=== PATIENT | female | born 1985 | race Caucasian/White ===

== ENCOUNTER 2022-04-11 09:40 | Inpatient (IN) | payer SELFPAY ==
[~2022-04-11 09:40] MED LIST: Iopamidol-370 76% 500 ML 1 ML ONE
[2022-04-11] MEDS ORDERED: Acetaminophen 500 MG TAB ONE (10:09)
[2022-04-11] MEDS ORDERED: Ondansetron PF 4 MG/2 ML Vial ONE (10:09)
[2022-04-11 10:49] LABS: Hemoglobin 6.4 g/dL (12.0-16.0); Mean Corpuscular HGB CONC 33.7 g/dL (32.0-36.0); Mean Corpuscular Hemoglobin 43.2 pg (27.0-31.0); Mean Platelet Volume 8.2 fL (7.4-10.4); Platelet Count 128 thou/uL (130-400); RBC Distribution Width 13.8 % (11.5-14.5); Red Blood Cell (RBC) Count 1.48 mill/uL (4.20-5.40); White Blood Cell (WBC) Count 14.7 thou/uL (4.8-10.8)
[2022-04-11 10:53] LABS: Clarity Hazy (Clear)
[2022-04-11 10:54] LABS: Bilirubin Unable to Interpret (Negative); Blood, Urine Unable to Interpret (Negative); Glucose, Urine (Dipstick) Unable to Interpret mg/dL (Negative); Ketone, Urine Unable to Interpret mg/dL (Negative); Leukocyte Unable to Interpret (Negative); Nitrite Unable to Interpret (Negative); Protein, Urine (Dipstick) Unable to Interpret mg/dL (Neg-Trace); Urobilinogen UNABLE TO INTERPRET mg/dL (Less than 2)
[2022-04-11 10:55] LABS: #Lymphocytes 1.8 thou/uL (1.20-3.40); #Monocytes 0.8 thou/uL (0.11-0.59); #Neutrophils 12.1 thou/uL (1.40-6.50); %Basophils 0.2 % (0.0-1.0); %Eosinophils 0.1 % (0.0-10.0); %Monocytes 5.4 % (0.0-10.0); %Neutrophils 82.4 % (42.0-75.0); Band 10 % (5-11); Hypersemented Neutrophil SLIGHT; Lymphocytes 11 % (21-51); MDiff Complete? YES; Macrocytosis MARKED = >30 cells (100X) (0-5/hpf); Monocytes 3 % (0-10); Neutrophil 76 % (42-75); Platelet Morphology Comment Appears Decreased; Polychromasia SLIGHT = 2-3 cells (100X) (0-2/hpf); Reflex for Review?? YES; Target Cells SLIGHT = 2-5 cells (100X) (0-1/hpf)
[2022-04-11 10:57] LABS: Pregnancy Test - Urine (BHCG) Negative (Negative); Pregu Control Background? CLEAR/WHITE (CLR/WHITE); Pregu Control Bar Appear? YES (CONTROL BAR)
[2022-04-11 10:57] LABS: Rouleaux Formation SLIGHT = 1-5 cells (100X) (None Seen)
[2022-04-11 10:58] LABS: Bacteria/HPF 4+ HPF (None Seen); WBC/HPF Greater than 50 HPF (0-3)
[2022-04-11 11:08] LABS: ALT (SGPT) 13 U/L (8-55); AST (SGOT) 98 U/L (5-34); Albumin 2.3 g/dL (3.5-5.0); Alkaline Phosphatase 150 U/L (40-110); BUN (Urea Nitrogen) 6 mg/dL (7.0-18.7); Bilirubin, Total 7.7 mg/dL (0.2-1.2); CK (CPK) 29 U/L (29-168); Calc. Creatinine Clearance 0 mL/min (70-130); Calcium 8.1 mg/dL (7.8-10.44); Estimated GFR 116; Globulin 4.7 g/dL (2.4-3.5); Glucose 78 mg/dL (70-105); Lipase 54 U/L (8-78)
[2022-04-11 11:09] LABS: Anion Gap 19 mmol/L (10-20)
[2022-04-11 11:17] LABS: Carbon Dioxide 34 mmol/L (22-29); Chloride 75 mmol/L (98-107); Sodium 127 mmol/L (136-145)
[2022-04-11] MEDS ORDERED: cefTRIAXone\\ROCEPHIN 1 GM VIAL ONE (11:19)
[2022-04-11 11:21] LABS: Potassium 2.9 mmol/L (3.5-5.1)
[2022-04-11 11:30] LABS: Hypochromia SLIGHT = 6-15 cells (100X) (0-5/hpf)
[2022-04-11] MEDS ORDERED: Multivitamins, Adult 10 ML, Thiamine HCl 100 MG, Folic Acid 1 MG in Dextrose 5 %-0.45 %... IV SCH (12:00)
[2022-04-11] MEDS ORDERED: Ondansetron PF 4 MG/2 ML Vial IVP PRN ×2 (13:01→19:15)
[2022-04-11] MEDS ORDERED: Potassium Chloride 20 MEQ/100 ML PREMIX BAG ONE ×2 (13:02→15:59)
[2022-04-11 13:48] LABS: INR-International Normal Ratio 1.6; Prothrombin Time 19.3 sec (12.0-14.7)
[2022-04-11 13:49] LABS: PTT 57.5 sec (22.9-36.1)
[2022-04-11] MEDS: Potassium Chloride 20 MEQ TAB PO SCH ×3 (14:00→20:46)
[2022-04-11 14:26] LABS: SARS-CoV-2 NAA Rapid Test DETECTED (NotDetected)
[2022-04-11 16:06] LABS: Hemoglobin 5.6 g/dL (12.0-16.0)
[2022-04-11 16:51] LABS: HBCM Index 0.12 S/CO (0-0.79); HBSAg Index 0.33 S/CO (0-0.99); Hep A IgM AB Non-Reactive (NonReactive); Hep A IgM S/CO 0.19 S/CO (0-0.79); Hep B Surf Ag Non-Reactive S/CO (NonReactive); Hep C IgG Ab Non-Reactive (NonReactive); Hep C Index 0.12 S/CO (0-0.79); Hepatitis B Core IgM Abs Non-Reactive (NonReactive)
[2022-04-11 17:20] LABS: Alcohol Less than 10 mg/dL (Less than 10); Salicylate Less than 8.0 mg/dL (15.0-30.0)
[2022-04-11 19:04] LABS: Syphilis Antibody Nonreactive (Nonreactive); Syphilis Antibody Index 0.09 S/CO (<1.00 Non-Reactive)
[2022-04-11] MEDS ORDERED: Ondansetron ODT 4 MG TAB SL PRN (19:15)
[2022-04-11 20:08] VITALS: BMI 25.7
[2022-04-11] MEDS: Multivitamins, Adult 10 ML, Folic Acid 1 MG, Thiamine HCl 100 MG in Dextrose 5 %-0.45 %... IV SCH ×2 (20:40→21:08)
[2022-04-11] MEDS: Pantoprazole 40 MG VIAL IVP SCH (20:46)
[2022-04-11] MEDS: D5 0.9% NS w/ 20 mEq KCl 1,000 ML IV SCH (20:47)
[2022-04-11] MEDS ORDERED: Albuterol 200 PUFF (6.7GM INHALER) INH SCH (21:00)
[2022-04-11 21:08] LABS: Hemoglobin 6.2 g/dL (12.0-16.0)
[2022-04-11 21:32] LABS: Amphetamine Not Detected (NotDetected); Barbiturates Screen Not Detected (NotDetected); Benzodiazepine Screen Not Detected (NotDetected); Cocaine Metabolite Screen Detected (NotDetected); Methadone Not Detected (NotDetected); Methamphetamine Not Detected (NotDetected); Opiate Screen Not Detected (NotDetected); Oxycodone Screen Not Detected (NotDetected); Phencyclidine (PCP) Not Detected (NotDetected); THC/Cannabinoid Screen Not Detected (NotDetected); Tricyclic Screen Not Detected (NotDetected)
[2022-04-11] MEDS: Acetaminophen 325 MG TAB PO PRN (21:41)
[2022-04-12] MEDS: Albuterol 200 PUFF (6.7GM INHALER) INH SCH ×4 (01:55→16:43)
[2022-04-12] MEDS: Potassium Chloride 20 MEQ TAB PO SCH ×3 (02:27→11:13)
[2022-04-12] MEDS: Acetaminophen 325 MG TAB PO PRN ×2 (02:28→14:05)
[2022-04-12] MEDS: D5 0.9% NS w/ 20 mEq KCl 1,000 ML IV SCH (06:06)
[2022-04-12] MEDS: Octreotide Acetate 1,250 MCG in Sodium Chloride 0.9% 250 ML 250 ML IVPB SCH (07:13)
[2022-04-12] MEDS: Pantoprazole 40 MG VIAL IVP SCH ×2 (07:14→20:14)
[2022-04-12] MEDS ORDERED: Electrolyte Replacement Protocol 1 EACH FS SCH (08:30)
[2022-04-12] MEDS: Multivitamins, Adult 10 ML, Folic Acid 1 MG, Thiamine HCl 100 MG in Dextrose 5 %-0.45 %... IV SCH (11:13)
[2022-04-12 11:18] LABS: Phosphorus 2.2 mg/dL (2.3-4.7)
[2022-04-12 11:19] LABS: ALT (SGPT) 10 U/L (8-55); AST (SGOT) 73 U/L (5-34); Albumin 2.1 g/dL (3.5-5.0); Alkaline Phosphatase 129 U/L (40-110); Anion Gap 15 mmol/L (10-20); BUN (Urea Nitrogen) 8 mg/dL (7.0-18.7); Bilirubin, Total 5.6 mg/dL (0.2-1.2); Calc. Creatinine Clearance 120 mL/min (70-130); Calcium 7.4 mg/dL (7.8-10.44); Carbon Dioxide 31 mmol/L (22-29); Chloride 88 mmol/L (98-107); Estimated GFR 114; Globulin 4.5 g/dL (2.4-3.5); Glucose 123 mg/dL (70-105); Magnesium 1.4 mg/dL (1.6-2.6); Potassium 3.9 mmol/L (3.5-5.1); Protein, Total 6.6 g/dL (6.0-8.3); Sodium 130 mmol/L (136-145)
[2022-04-12 11:28] LABS: Hemoglobin 6.4 g/dL (12.0-16.0); Mean Corpuscular Hemoglobin 37.5 pg (27.0-31.0); Mean Platelet Volume 8.1 fL (7.4-10.4); Platelet Count 123 thou/uL (130-400); RBC Distribution Width 20.7 % (11.5-14.5); Red Blood Cell (RBC) Count 1.69 mill/uL (4.20-5.40); White Blood Cell (WBC) Count 15.2 thou/uL (4.8-10.8)
[2022-04-12 11:29] LABS: INR-International Normal Ratio 1.6; Prothrombin Time 19.4 sec (12.0-14.7)
[2022-04-12 11:53] LABS: Band 12 % (5-11); Hypersemented Neutrophil SLIGHT; Lymphocytes 16 % (21-51); MDiff Complete? YES; Macrocytosis MODERATE=16-30 cells (100X) (0-5/hpf); Monocytes 4 % (0-10); Neutrophil 67 % (42-75); Platelet Morphology Comment Appears Decreased; Polychromasia SLIGHT = 2-3 cells (100X) (0-2/hpf); Target Cells SLIGHT = 2-5 cells (100X) (0-1/hpf)
[2022-04-12] MEDS ORDERED: Magnesium Sulfate In Water 4 GM in Premix Bag 1 BAG IVPB SCH (12:30)
[2022-04-12] MEDS: cefTRIAXone\\ROCEPHIN 1 GM in Sodium Chloride 0.9% 100 ML IVPB SCH (13:25)
[2022-04-12] MEDS ORDERED: prednisoLONE 10 MG ODT TAB PO SCH (14:45)
[2022-04-12 17:11] LABS: Hemoglobin 7.5 g/dL (12.0-16.0); Platelet Count 121 thou/uL (130-400)
[2022-04-12] MEDS ORDERED: Lorazepam 0.5 MG TAB PO PRN (19:28)
[2022-04-13] MEDS: Albuterol 200 PUFF (6.7GM INHALER) INH SCH ×4 (00:39→22:34)
[2022-04-13 07:04] LABS: INR-International Normal Ratio 1.5; Prothrombin Time 18.1 sec (12.0-14.7)
[2022-04-13 07:06] LABS: PTT 57.2 sec (22.9-36.1)
[2022-04-13 07:09] LABS: Lactic Acid 2.4 mmol/L (0.5-2.2)
[2022-04-13 07:14] LABS: ALT (SGPT) 10 U/L (8-55); AST (SGOT) 56 U/L (5-34); Albumin 2.4 g/dL (3.5-5.0); Alkaline Phosphatase 155 U/L (40-110); Anion Gap 13 mmol/L (10-20); BUN (Urea Nitrogen) 8 mg/dL (7.0-18.7); Bilirubin, Total 3.2 mg/dL (0.2-1.2); Calc. Creatinine Clearance 108 mL/min (70-130); Calcium 7.9 mg/dL (7.8-10.44); Carbon Dioxide 31 mmol/L (22-29); Chloride 89 mmol/L (98-107); Estimated GFR 101; Globulin 5.1 g/dL (2.4-3.5); Glucose 146 mg/dL (70-105); Magnesium 2.5 mg/dL (1.6-2.6); Potassium 4.5 mmol/L (3.5-5.1); Protein, Total 7.5 g/dL (6.0-8.3); Sodium 128 mmol/L (136-145)
[2022-04-13 07:15] LABS: Hemoglobin 7.8 g/dL (12.0-16.0); Mean Corpuscular HGB CONC 33.3 g/dL (32.0-36.0); Mean Corpuscular Hemoglobin 37.8 pg (27.0-31.0); Mean Platelet Volume 8.3 fL (7.4-10.4); Platelet Count 131 thou/uL (130-400); RBC Distribution Width 20.1 % (11.5-14.5); Red Blood Cell (RBC) Count 2.06 mill/uL (4.20-5.40); White Blood Cell (WBC) Count 12.4 thou/uL (4.8-10.8)
[2022-04-13 07:16] LABS: #Lymphocytes 2.1 thou/uL (1.20-3.40); #Monocytes 0.4 thou/uL (0.11-0.59); %Basophils 0.2 % (0.0-1.0); %Lymphocytes 16.5 % (21.0-51.0); %Monocytes 3.1 % (0.0-10.0); %Neutrophils 80.2 % (42.0-75.0)
[2022-04-13 07:34] LABS: HIV (1/2) Antibody/Antigen Non-Reactive (NonReactive); HIV 1/2 INDEX 0.25 S/CO (<1.00)
[2022-04-13] MEDS: Multivit, Therapeutic 1 TAB PO SCH (08:53)
[2022-04-13] MEDS: Thiamine 100 MG TAB PO SCH (08:53)
[2022-04-13] MEDS: PHOS-NAK 1 PKT PACK PO SCH ×2 (08:53→21:00)
[2022-04-13] MEDS: Folic Acid 1 MG TAB PO SCH (08:53)
[2022-04-13] MEDS: Pantoprazole 40 MG VIAL IVP SCH ×2 (08:55→21:55)
[2022-04-13] MEDS: Octreotide Acetate 1,250 MCG in Sodium Chloride 0.9% 250 ML 250 ML IVPB SCH (08:58)
[2022-04-13] MEDS: Multivitamins, Adult 10 ML, Folic Acid 1 MG, Thiamine HCl 100 MG in Dextrose 5 %-0.45 %... IV SCH (09:01)
[2022-04-13] MEDS: prednisoLONE 10 MG ODT TAB PO SCH (09:01)
[2022-04-13 09:16] LABS: Anisocytosis SLIGHT = 6-15 cells (100X) (0-5/hpf); MDiff Complete? YES; Macrocytosis MODERATE=16-30 cells (100X) (0-5/hpf); Platelet Morphology Comment Appears Adequate; Polychromasia SLIGHT = 2-3 cells (100X) (0-2/hpf); Target Cells SLIGHT = 2-5 cells (100X) (0-1/hpf)
[2022-04-13] MEDS: cefTRIAXone\\ROCEPHIN 1 GM in Sodium Chloride 0.9% 100 ML IVPB SCH (20:59)
[2022-04-14] MEDS: Albuterol 200 PUFF (6.7GM INHALER) INH SCH ×4 (02:35→22:05)
[2022-04-14 06:26] LABS: ALT (SGPT) 14 U/L (8-55); AST (SGOT) 70 U/L (5-34); Albumin 2.4 g/dL (3.5-5.0); Alkaline Phosphatase 136 U/L (40-110); Anion Gap 14 mmol/L (10-20); BUN (Urea Nitrogen) 15 mg/dL (7.0-18.7); Bilirubin, Total 2.3 mg/dL (0.2-1.2); Calc. Creatinine Clearance 85 mL/min (70-130); Calcium 8.2 mg/dL (7.8-10.44); Carbon Dioxide 29 mmol/L (22-29); Chloride 90 mmol/L (98-107); Estimated GFR 76; Globulin 4.8 g/dL (2.4-3.5); Glucose 156 mg/dL (70-105); Magnesium 2.4 mg/dL (1.6-2.6); Phosphorus 3.9 mg/dL (2.3-4.7); Potassium 4.6 mmol/L (3.5-5.1); Protein, Total 7.2 g/dL (6.0-8.3); Sodium 128 mmol/L (136-145)
[2022-04-14 06:33] LABS: Anisocytosis SLIGHT = 6-15 cells (100X) (0-5/hpf); Band 4 % (5-11); Hemoglobin 7.1 g/dL (12.0-16.0); Lymphocytes 12 % (21-51); MDiff Complete? YES; Mean Corpuscular HGB CONC 32.2 g/dL (32.0-36.0); Mean Corpuscular Hemoglobin 36.4 pg (27.0-31.0); Mean Platelet Volume 7.8 fL (7.4-10.4); Monocytes 6 % (0-10); Neutrophil 78 % (42-75); Platelet Count 143 thou/uL (130-400); RBC Distribution Width 19.2 % (11.5-14.5); Red Blood Cell (RBC) Count 1.94 mill/uL (4.20-5.40); White Blood Cell (WBC) Count 8.9 thou/uL (4.8-10.8)
[2022-04-14] MEDS: prednisoLONE 10 MG ODT TAB PO SCH (09:03)
[2022-04-14] MEDS: Pantoprazole 40 MG VIAL IVP SCH ×2 (10:00→22:05)
[2022-04-14] MEDS: Multivit, Therapeutic 1 TAB PO SCH (10:00)
[2022-04-14] MEDS: Folic Acid 1 MG TAB PO SCH (10:00)
[2022-04-14] MEDS: Multivitamins, Adult 10 ML, Folic Acid 1 MG, Thiamine HCl 100 MG in Dextrose 5 %-0.45 %... IV SCH (11:03)
[2022-04-14] MEDS: cefTRIAXone\\ROCEPHIN 1 GM in Sodium Chloride 0.9% 100 ML IVPB SCH ×2 (12:02→12:03)
[2022-04-14] MEDS: Nicotine 14 MG PATCH TD PRN (12:02)
[2022-04-15] MEDS: Albuterol 200 PUFF (6.7GM INHALER) INH SCH ×4 (03:47→23:02)
[2022-04-15] MEDS: Octreotide Acetate 1,250 MCG in Sodium Chloride 0.9% 250 ML 250 ML IVPB SCH (03:48)
[2022-04-15 06:25] LABS: Mean Corpuscular HGB CONC 33.1 g/dL (32.0-36.0); Mean Platelet Volume 7.7 fL (7.4-10.4); Platelet Count 153 thou/uL (130-400); RBC Distribution Width 19.4 % (11.5-14.5); Red Blood Cell (RBC) Count 1.85 mill/uL (4.20-5.40); White Blood Cell (WBC) Count 7.2 thou/uL (4.8-10.8)
[2022-04-15 06:54] LABS: Band 3 % (5-11); Lymphocytes 30 % (21-51); MDiff Complete? YES; Macrocytosis MODERATE=16-30 cells (100X) (0-5/hpf); Monocytes 10 % (0-10); Neutrophil 57 % (42-75)
[2022-04-15 06:57] LABS: ALT (SGPT) 25 U/L (8-55); AST (SGOT) 155 U/L (5-34); Albumin 2.3 g/dL (3.5-5.0); Alkaline Phosphatase 135 U/L (40-110); Anion Gap 12 mmol/L (10-20); BUN (Urea Nitrogen) 23 mg/dL (7.0-18.7); Bilirubin, Total 1.9 mg/dL (0.2-1.2); Calc. Creatinine Clearance 95 mL/min (70-130); Calcium 8.4 mg/dL (7.8-10.44); Carbon Dioxide 29 mmol/L (22-29); Chloride 93 mmol/L (98-107); Estimated GFR 86; Globulin 4.6 g/dL (2.4-3.5); Glucose 94 mg/dL (70-105); Potassium 4.4 mmol/L (3.5-5.1); Protein, Total 6.9 g/dL (6.0-8.3); Sodium 130 mmol/L (136-145)
[2022-04-15] MEDS: prednisoLONE 10 MG ODT TAB PO SCH (09:42)
[2022-04-15] MEDS: Pantoprazole 40 MG VIAL IVP SCH ×2 (09:43→23:02)
[2022-04-15] MEDS: Multivit, Therapeutic 1 TAB PO SCH (09:43)
[2022-04-15] MEDS: Thiamine 100 MG TAB PO SCH (09:43)
[2022-04-15] MEDS: Folic Acid 1 MG TAB PO SCH (09:43)
[2022-04-15] MEDS: Multivitamins, Adult 10 ML, Folic Acid 1 MG, Thiamine HCl 100 MG in Dextrose 5 %-0.45 %... IV SCH (11:53)
[2022-04-15] MEDS: Nicotine 14 MG PATCH TD PRN (12:03)
[2022-04-15] MEDS: cefTRIAXone\\ROCEPHIN 1 GM in Sodium Chloride 0.9% 100 ML IVPB SCH (12:03)
[2022-04-15 18:40] LABS: ANA Symphony (Qualitative) POSITIVE (Negative); CENP IgG Antibody 1.2 EliAU/mL (<7 Negative); EliA Vaculitis New Method **** NEW METHOD ****; Jo-1 IgG Antibody 0.8 EliAU/mL (<7 Negative); RNP70 IgG Antibody 0.9 EliAU/mL (<7 Negative); SSA/Ro IgG Antibody 1.2 EliAU/mL (<7 Negative); SSB/La IgG Antibody 0.8 EliAU/mL (<7 Negative); Scleroderma-70 IgG Antibody 1.1 EliAU/mL (<7 Negative); Smith D IgG Antibody 2.5 EliAU/mL (<7 Negative); dsDNA IgG Antibody 3.9 IU/mL (<10 Negative)
[2022-04-16] MEDS: Albuterol 200 PUFF (6.7GM INHALER) INH SCH ×4 (02:51→23:12)
[2022-04-16] MEDS: Nicotine 14 MG PATCH TD PRN (09:16)
[2022-04-16] MEDS: Multivit, Therapeutic 1 TAB PO SCH (09:17)
[2022-04-16] MEDS: Folic Acid 1 MG TAB PO SCH (09:17)
[2022-04-16] MEDS: Pantoprazole 40 MG VIAL IVP SCH ×2 (09:18→21:44)
[2022-04-16] MEDS: prednisoLONE 10 MG ODT TAB PO SCH (09:18)
[2022-04-16] MEDS: Thiamine 100 MG TAB PO SCH (09:19)
[2022-04-16] MEDS ORDERED: GoLYTELY 4,000 ml Bottle PO SCH (12:00)
[2022-04-16] MEDS: Multivitamins, Adult 10 ML, Folic Acid 1 MG, Thiamine HCl 100 MG in Dextrose 5 %-0.45 %... IV SCH (15:29)
[2022-04-17] MEDS: Albuterol 200 PUFF (6.7GM INHALER) INH SCH ×4 (00:56→19:21)
[2022-04-17 07:23] LABS: #Lymphocytes 2.9 thou/uL (1.20-3.40); #Monocytes 0.9 thou/uL (0.11-0.59); #Neutrophils 4.2 thou/uL (1.40-6.50); %Basophils 0.6 % (0.0-1.0); %Eosinophils 0.2 % (0.0-10.0); %Lymphocytes 36.1 % (21.0-51.0); %Monocytes 11.1 % (0.0-10.0); %Neutrophils 51.9 % (42.0-75.0); Hemoglobin 8.9 g/dL (12.0-16.0); Mean Corpuscular HGB CONC 32.6 g/dL (32.0-36.0); Mean Corpuscular Hemoglobin 37.8 pg (27.0-31.0); Mean Platelet Volume 7.3 fL (7.4-10.4); Platelet Count 195 thou/uL (130-400); RBC Distribution Width 18.4 % (11.5-14.5); Red Blood Cell (RBC) Count 2.36 mill/uL (4.20-5.40)
[2022-04-17 07:27] LABS: INR-International Normal Ratio 1.3; Prothrombin Time 16.6 sec (12.0-14.7)
[2022-04-17 07:37] LABS: Anion Gap 15 mmol/L (10-20); BUN (Urea Nitrogen) 10 mg/dL (7.0-18.7); Calc. Creatinine Clearance 137 mL/min (70-130); Calcium 8.2 mg/dL (7.8-10.44); Carbon Dioxide 27 mmol/L (22-29); Chloride 98 mmol/L (98-107); Estimated GFR 120; Glucose 84 mg/dL (70-105); Potassium 3.9 mmol/L (3.5-5.1); Sodium 136 mmol/L (136-145)
[2022-04-17 08:06] LABS: Hypochromia SLIGHT = 6-15 cells (100X) (0-5/hpf); MDiff Complete? YES; Macrocytosis SLIGHT = 6-15 cells (100X) (0-5/hpf); Platelet Morphology Comment Appears Adequate; Polychromasia SLIGHT = 2-3 cells (100X) (0-2/hpf); Target Cells SLIGHT = 2-5 cells (100X) (0-1/hpf)
[2022-04-17] MEDS: Multivit, Therapeutic 1 TAB PO SCH ×2 (09:00→16:27)
[2022-04-17] MEDS: Multivitamins, Adult 10 ML, Folic Acid 1 MG, Thiamine HCl 100 MG in Dextrose 5 %-0.45 %... IV SCH (09:00)
[2022-04-17] MEDS: prednisoLONE 10 MG ODT TAB PO SCH (09:00)
[2022-04-17] MEDS: Thiamine 100 MG TAB PO SCH ×2 (09:00→16:27)
[2022-04-17] MEDS: Pantoprazole 40 MG VIAL IVP SCH ×3 (09:00→20:10)
[2022-04-17] MEDS: Folic Acid 1 MG TAB PO SCH ×2 (09:51→16:27)
[2022-04-17] MEDS ORDERED: fentaNYL Citrate/PF 100 MCG/2 ML SYRINGE ONE (13:32)
[2022-04-17] MEDS ORDERED: PROPOFOL 200 MG/20 ML VIAL ONE (13:39)
[2022-04-17] MEDS ORDERED: Lidocaine 1% MPF 2 ML VIAL ONE (13:39)
[2022-04-18] MEDS: Albuterol 200 PUFF (6.7GM INHALER) INH SCH (01:13)
[2022-04-18 06:51] LABS: #Basophils 0.1 thou/uL (0.0-0.2); #Lymphocytes 2.3 thou/uL (1.20-3.40); #Monocytes 0.9 thou/uL (0.11-0.59); #Neutrophils 3.1 thou/uL (1.40-6.50); %Basophils 0.8 % (0.0-1.0); %Eosinophils 0.5 % (0.0-10.0); %Lymphocytes 35.6 % (21.0-51.0); %Monocytes 13.7 % (0.0-10.0); %Neutrophils 49.5 % (42.0-75.0); Hemoglobin 7.1 g/dL (12.0-16.0); Mean Corpuscular HGB CONC 32.3 g/dL (32.0-36.0); Mean Corpuscular Hemoglobin 36.9 pg (27.0-31.0); Mean Platelet Volume 7.2 fL (7.4-10.4); Platelet Count 160 thou/uL (130-400); RBC Distribution Width 18.5 % (11.5-14.5); Red Blood Cell (RBC) Count 1.93 mill/uL (4.20-5.40); White Blood Cell (WBC) Count 6.3 thou/uL (4.8-10.8)
[2022-04-18 07:16] LABS: ALT (SGPT) 64 U/L (8-55); AST (SGOT) 188 U/L (5-34); Albumin 2.1 g/dL (3.5-5.0); Alkaline Phosphatase 143 U/L (40-110); Anion Gap 12 mmol/L (10-20); BUN (Urea Nitrogen) 5 mg/dL (7.0-18.7); Bilirubin, Total 1.8 mg/dL (0.2-1.2); Calc. Creatinine Clearance 144 mL/min (70-130); Calcium 7.7 mg/dL (7.8-10.44); Carbon Dioxide 29 mmol/L (22-29); Chloride 98 mmol/L (98-107); Estimated GFR 121; Glucose 106 mg/dL (70-105); Potassium 3.7 mmol/L (3.5-5.1); Protein, Total 6.1 g/dL (6.0-8.3); Sodium 135 mmol/L (136-145)
[2022-04-18 08:08] VITALS: BP 108/73; TEMP 98.2
== END 2022-04-18 12:06 | disposition home or self-care (01) | DRG 432 ==
LOC: ERS 09:40 → ERHOLD 13:01 → T4-B 18:51
PROVIDERS: ADMIT Family Medicine; ATTEND Family Medicine
PROC: 30233N1 Transfusion of Nonautologous Red Blood Cells into Peripheral Vein, Percutaneous Approach (ICD-10-PCS; principal; 2022-04-11)
PROC: 8E0ZXY6 Isolation (ICD-10-PCS; 2022-04-11)
PROC: 0DJ08ZZ Inspection of Upper Intestinal Tract, Via Natural or Artificial Opening Endoscopic (ICD-10-PCS; 2022-04-17)
PROC: 0DBH8ZZ Excision of Cecum, Via Natural or Artificial Opening Endoscopic (ICD-10-PCS; 2022-04-17)
PROC: 0DBL8ZZ Excision of Transverse Colon, Via Natural or Artificial Opening Endoscopic (ICD-10-PCS; 2022-04-17)
DX: K70.10 Alcoholic hepatitis without ascites (principal); U07.1 COVID-19; E87.1 Hypo-osmolality and hyponatremia; N30.00 Acute cystitis without hematuria; E87.2 Acidosis; K76.6 Portal hypertension; D62 Acute posthemorrhagic anemia; F41.9 Anxiety disorder, unspecified; N92.0 Excessive and frequent menstruation with regular cycle; K70.31 Alcoholic cirrhosis of liver with ascites; E87.6 Hypokalemia; F14.10 Cocaine abuse, uncomplicated; F17.210 Nicotine dependence, cigarettes, uncomplicated; E83.42 Hypomagnesemia; E83.39 Other disorders of phosphorus metabolism; D69.6 Thrombocytopenia, unspecified; K31.89 Other diseases of stomach and duodenum; K57.30 Diverticulosis of large intestine without perforation or abscess without bleeding; K64.4 Residual hemorrhoidal skin tags; K64.8 Other hemorrhoids; Z90.49 Acquired absence of other specified parts of digestive tract; Z88.0 Allergy status to penicillin
CPT/HCPCS: 36415; 36416; 36430; 71045; 74177; 76705; 76856; 80048; 80053; 80074; 80306; 80307; 81003; 81015; 81025; 82105; 82390; 82550; 82607; 83516; 83605; 83690; 83735; 83880; 84100; 85025; 85060; 85610; 85730; 86015; 86038; 86225; 86235; 86780; 86850; 86900; 86901; 87040; 87077; 87086; 87186; 87389; 88305; 93306; 93975; 96361; 96374; 96375; C1776; C9113; J0696; J2354; J2405; J2704; J3411; J3475; J3480; J3490; J7042; J7050; J7510; J7620; P9016; Q9967

== ENCOUNTER 2022-04-30 08:20 | Inpatient (IN) | payer SELFPAY ==
[2022-04-30] MEDS ORDERED: Pantoprazole 40 MG VIAL ONE (08:40)
[2022-04-30] MEDS ORDERED: Ondansetron PF 4 MG/2 ML Vial ONE (08:40)
[2022-04-30] MEDS ORDERED: Tranexamic Acid 1,000 MG/10 ML VIAL ONE (08:40)
[2022-04-30] MEDS ORDERED: Octreotide Acetate 1,250 MCG in Sodium Chloride 0.9% 250 ML 250 ML IVPB SCH ×2 (08:45→12:15)
[2022-04-30] MEDS ORDERED: Pantoprazole 80 MG, Admixture Fee 1 EACH in Sodium Chloride 0.9% 100 ML IVPB SCH (09:00)
[2022-04-30 09:08] LABS: Hemoglobin 4.5 g/dL (12.0-16.0); Mean Corpuscular HGB CONC 32.3 g/dL (32.0-36.0); Mean Corpuscular Hemoglobin 33.2 pg (27.0-31.0); Mean Platelet Volume 7.2 fL (7.4-10.4); Platelet Count 184 thou/uL (130-400); RBC Distribution Width 19.7 % (11.5-14.5); Red Blood Cell (RBC) Count 1.36 mill/uL (4.20-5.40); White Blood Cell (WBC) Count 20.7 thou/uL (4.8-10.8)
[2022-04-30 09:11] LABS: INR-International Normal Ratio 1.6; PTT 35.2 sec (22.9-36.1); Prothrombin Time 19.6 sec (12.0-14.7)
[2022-04-30] MEDS ORDERED: Iopamidol-370 76% 500 ML 1 ML ONE (09:19)
[2022-04-30 09:22] LABS: Band 8 % (5-11); Lymphocytes 13 % (21-51); MDiff Complete? YES; Macrocytosis SLIGHT = 6-15 cells (100X) (0-5/hpf); Monocytes 3 % (0-10); Neutrophil 76 % (42-75); Platelet Morphology Comment Appears Adequate; Polychromasia MODERATE = 3-4 cells (100X) (0-2/hpf)
[2022-04-30 09:24] LABS: ALT (SGPT) 56 U/L (8-55); AST (SGOT) 74 U/L (5-34); Alkaline Phosphatase 68 U/L (40-110); Anion Gap 15 mmol/L (10-20); BUN (Urea Nitrogen) 16 mg/dL (7.0-18.7); Bilirubin, Total 1.5 mg/dL (0.2-1.2); Calc. Creatinine Clearance 0 mL/min (70-130); Calcium 7.3 mg/dL (7.8-10.44); Carbon Dioxide 23 mmol/L (22-29); Chloride 102 mmol/L (98-107); Estimated GFR 116; Globulin 2.2 g/dL (2.4-3.5); Glucose 110 mg/dL (70-105); Iron 13 ug/dL (50-170); Iron Binding Capacity, Total 129 mcg/dL (265-497); Potassium 3.9 mmol/L (3.5-5.1); Protein, Total 4.2 g/dL (6.0-8.3); Sodium 136 mmol/L (136-145)
[2022-04-30] MEDS ORDERED: Midazolam HCl 2 mg/2 ml Vial ONE (09:26)
[2022-04-30] MEDS ORDERED: Cefepime 2 GM VIAL ONE (09:36)
[2022-04-30] MEDS ORDERED: Sodium Chloride 0.9% 100 ML ONE (09:36)
[2022-04-30] MEDS ORDERED: Vancomycin 1 GM/200 ML BAG ONE (09:36)
[2022-04-30 09:37] LABS: Acetaminophen Less than 10.0 mcg/mL (10.0-30.0); Alcohol Less than 10 mg/dL (Less than 10); Salicylate Less than 8.0 mg/dL (15.0-30.0)
[2022-04-30 10:16] LABS: Bilirubin Negative (Negative); Blood, Urine Negative (Negative); Clarity Clear (Clear); Glucose, Urine (Dipstick) Normal (Negative); Ketone, Urine Negative (Negative); Leukocyte Negative Leu/uL (Negative); Nitrite Negative (Negative); Protein, Urine (Dipstick) 10 mg/dL (Neg-Trace); Urobilinogen Normal mg/dL (Less than 2); pH, Urine 5.5 (5.0-9.0)
[2022-04-30 10:19] LABS: Pregnancy Test - Urine (BHCG) Negative (Negative); Pregu Control Background? CLEAR/WHITE (CLR/WHITE); Pregu Control Bar Appear? YES (CONTROL BAR)
[2022-04-30 10:52] LABS: SARS-CoV-2 NAA Rapid Test Not Detected (NotDetected)
[2022-04-30] MEDS ORDERED: Ondansetron PF 4 MG/2 ML Vial IVP PRN (11:54)
[2022-04-30 12:22] LABS: #Basophils 0.1 thou/uL (0.0-0.2); #Lymphocytes 2.2 thou/uL (1.20-3.40); #Monocytes 0.9 thou/uL (0.11-0.59); %Basophils 0.4 % (0.0-1.0); %Eosinophils 0.3 % (0.0-10.0); %Lymphocytes 16.4 % (21.0-51.0); %Monocytes 6.7 % (0.0-10.0); %Neutrophils 76.2 % (42.0-75.0); Hemoglobin 7.5 g/dL (12.0-16.0); Mean Corpuscular HGB CONC 34.5 g/dL (32.0-36.0); Mean Corpuscular Hemoglobin 32.7 pg (27.0-31.0); Mean Corpuscular Volume 94.7 fL (78.0-98.0); Mean Platelet Volume 7.4 fL (7.4-10.4); Platelet Count 108 thou/uL (130-400); RBC Distribution Width 17.3 % (11.5-14.5); Red Blood Cell (RBC) Count 2.29 mill/uL (4.20-5.40); White Blood Cell (WBC) Count 13.2 thou/uL (4.8-10.8)
[2022-04-30 12:35] LABS: Anion Gap 12 mmol/L (10-20); BUN (Urea Nitrogen) 17 mg/dL (7.0-18.7); Calc. Creatinine Clearance 0 mL/min (70-130); Carbon Dioxide 22 mmol/L (22-29); Chloride 104 mmol/L (98-107); Estimated GFR 120; Glucose 139 mg/dL (70-105); Potassium 3.9 mmol/L (3.5-5.1); Sodium 134 mmol/L (136-145)
[2022-04-30] MEDS ORDERED: GoLYTELY 4,000 ml Bottle PO SCH (12:45)
[2022-04-30 12:49] LABS: Amphetamine Not Detected (NotDetected); Barbiturates Screen Not Detected (NotDetected); Benzodiazepine Screen Not Detected (NotDetected); Cocaine Metabolite Screen Detected (NotDetected); Methadone Not Detected (NotDetected); Methamphetamine Not Detected (NotDetected); Opiate Screen Not Detected (NotDetected); Oxycodone Screen Not Detected (NotDetected); Phencyclidine (PCP) Not Detected (NotDetected); THC/Cannabinoid Screen Detected (NotDetected); Tricyclic Screen Not Detected (NotDetected)
[2022-04-30 12:50] LABS: Hemoglobin A1c 4.9 % (4.0-6.0)
[2022-04-30] MEDS ORDERED: NOREPINEPHRINE 8 MG/250 ML-D5W 250 ML ONE (12:51)
[2022-04-30 12:53] LABS: Hemoglobin 8.2 g/dL (12.0-16.0); Platelet Count 107 thou/uL (130-400)
[2022-04-30 12:57] LABS: Lactic Acid 2.2 mmol/L (0.5-2.2)
[2022-04-30 15:26] VITALS: BMI 32.0
[2022-04-30] MEDS: cefTRIAXone\\ROCEPHIN 2 GM in Sodium Chloride 0.9% 100 ML IVPB SCH (16:33)
[2022-04-30 17:20] LABS: Hemoglobin 8.8 g/dL (12.0-16.0); Mean Corpuscular HGB CONC 35.1 g/dL (32.0-36.0); Mean Corpuscular Hemoglobin 32.5 pg (27.0-31.0); Mean Corpuscular Volume 92.6 fL (78.0-98.0); Mean Platelet Volume 7.1 fL (7.4-10.4); Platelet Count 110 thou/uL (130-400); RBC Distribution Width 17.2 % (11.5-14.5); Red Blood Cell (RBC) Count 2.72 mill/uL (4.20-5.40); White Blood Cell (WBC) Count 13.5 thou/uL (4.8-10.8)
[2022-04-30 17:32] LABS: INR-International Normal Ratio 1.5; PTT 39.9 sec (22.9-36.1); Prothrombin Time 18.3 sec (12.0-14.7)
[2022-04-30] MEDS: Pantoprazole 40 MG VIAL IVP SCH (20:50)
[2022-04-30 23:25] LABS: Hemoglobin 8.6 g/dL (12.0-16.0); Mean Corpuscular HGB CONC 34.6 g/dL (32.0-36.0); Mean Corpuscular Volume 92.5 fL (78.0-98.0); Mean Platelet Volume 7.1 fL (7.4-10.4); Platelet Count 110 thou/uL (130-400); RBC Distribution Width 17.5 % (11.5-14.5); Red Blood Cell (RBC) Count 2.68 mill/uL (4.20-5.40); White Blood Cell (WBC) Count 11.5 thou/uL (4.8-10.8)
[2022-05-01] MEDS ORDERED: Sodium Chloride 0.9% 500 ML IVPB SCH ×2 (03:30→04:45)
[2022-05-01 05:20] LABS: INR-International Normal Ratio 1.5; PTT 42.2 sec (22.9-36.1); Prothrombin Time 18.1 sec (12.0-14.7)
[2022-05-01 05:22] LABS: #Eosinphils 0.2 thou/uL (0.0-0.7); #Monocytes 0.6 thou/uL (0.11-0.59); #Neutrophils 5.6 thou/uL (1.40-6.50); %Basophils 0.6 % (0.0-1.0); %Eosinophils 1.9 % (0.0-10.0); %Lymphocytes 24.4 % (21.0-51.0); %Monocytes 6.8 % (0.0-10.0); %Neutrophils 66.4 % (42.0-75.0); Hemoglobin 8.1 g/dL (12.0-16.0); Mean Corpuscular HGB CONC 33.4 g/dL (32.0-36.0); Mean Corpuscular Hemoglobin 31.3 pg (27.0-31.0); Mean Corpuscular Volume 93.7 fL (78.0-98.0); Mean Platelet Volume 7.4 fL (7.4-10.4); Platelet Count 107 thou/uL (130-400); RBC Distribution Width 17.8 % (11.5-14.5); White Blood Cell (WBC) Count 8.4 thou/uL (4.8-10.8)
[2022-05-01 05:37] LABS: ALT (SGPT) 45 U/L (8-55); AST (SGOT) 55 U/L (5-34); Albumin 2.1 g/dL (3.5-5.0); Alkaline Phosphatase 73 U/L (40-110); Anion Gap 12 mmol/L (10-20); BUN (Urea Nitrogen) 14 mg/dL (7.0-18.7); Bilirubin, Total 2.2 mg/dL (0.2-1.2); Calc. Creatinine Clearance 176 mL/min (70-130); Calcium 7.2 mg/dL (7.8-10.44); Carbon Dioxide 25 mmol/L (22-29); Cardiac Risk 7.2 (Less than 4.5); Chloride 105 mmol/L (98-107); Cholesterol 130 mg/dl (< 200 Desired); Estimated GFR 121; Globulin 2.3 g/dL (2.4-3.5); Glucose 87 mg/dL (70-105); HDL Cholesterol 18 mg/dL (>60 Neg Risk); LDL Cholesterol, Calculated 84 mg/dL; Magnesium 1.7 mg/dL (1.6-2.6); Protein, Total 4.4 g/dL (6.0-8.3); Sodium 139 mmol/L (136-145); Triglycerides 141 mg/dL (Less than 150)
[2022-05-01 05:42] LABS: Potassium 2.9 mmol/L (3.5-5.1)
[2022-05-01] MEDS ORDERED: Electrolyte Replacement Protocol 1 EACH FS PRN (06:09)
[2022-05-01] MEDS: Sodium Chloride 0.9% 1,000 ML IV SCH ×4 (06:21→15:07)
[2022-05-01] MEDS: Potassium Chloride 20 MEQ in Premix Bag 1 BAG IVPB SCH ×4 (06:29→15:07)
[2022-05-01] MEDS ORDERED: Magnesium 2 GM/50 ML(in water) 2 GM in Premix Bag 1 BAG IVPB SCH (08:00)
[2022-05-01] MEDS: Pantoprazole 40 MG VIAL IVP SCH ×2 (08:18→20:18)
[2022-05-01 11:21] LABS: Hemoglobin 9.1 g/dL (12.0-16.0); Mean Corpuscular HGB CONC 33.5 g/dL (32.0-36.0); Mean Corpuscular Hemoglobin 31.6 pg (27.0-31.0); Mean Corpuscular Volume 94.5 fL (78.0-98.0); Mean Platelet Volume 7.9 fL (7.4-10.4); Platelet Count 106 thou/uL (130-400); RBC Distribution Width 17.9 % (11.5-14.5); Red Blood Cell (RBC) Count 2.88 mill/uL (4.20-5.40); White Blood Cell (WBC) Count 7.6 thou/uL (4.8-10.8)
[2022-05-01] MEDS ORDERED: PROPOFOL 200 MG/20 ML VIAL ONE (11:54)
[2022-05-01] MEDS ORDERED: Phenylephrine 10 MG/ML VIAL ONE (11:54)
[2022-05-01] MEDS ORDERED: Ondansetron HCl/PF 4 MG/2 ML Vial IVP PRN (12:21)
[2022-05-01] MEDS ORDERED: Promethazine HCl 25 MG/ML VIAL IVPB PRN (12:21)
[2022-05-01] MEDS: cefTRIAXone\\ROCEPHIN 2 GM in Sodium Chloride 0.9% 100 ML IVPB SCH (15:06)
[2022-05-02] MEDS: Sodium Chloride 0.9% 1,000 ML IV SCH ×3 (02:35→20:59)
[2022-05-02 07:17] LABS: #Eosinphils 0.2 thou/uL (0.0-0.7); #Lymphocytes 2.1 thou/uL (1.20-3.40); #Monocytes 0.5 thou/uL (0.11-0.59); #Neutrophils 4.5 thou/uL (1.40-6.50); %Basophils 0.1 % (0.0-1.0); %Eosinophils 2.6 % (0.0-10.0); %Lymphocytes 28.4 % (21.0-51.0); %Monocytes 6.4 % (0.0-10.0); %Neutrophils 62.5 % (42.0-75.0); Mean Corpuscular HGB CONC 32.6 g/dL (32.0-36.0); Mean Corpuscular Hemoglobin 31.7 pg (27.0-31.0); Mean Corpuscular Volume 97.3 fL (78.0-98.0); Mean Platelet Volume 7.2 fL (7.4-10.4); Platelet Count 126 thou/uL (130-400); RBC Distribution Width 17.8 % (11.5-14.5); Red Blood Cell (RBC) Count 2.83 mill/uL (4.20-5.40); White Blood Cell (WBC) Count 7.3 thou/uL (4.8-10.8)
[2022-05-02 07:27] LABS: INR-International Normal Ratio 1.2; Prothrombin Time 15.4 sec (12.0-14.7)
[2022-05-02 07:28] LABS: PTT 37.7 sec (22.9-36.1)
[2022-05-02 07:36] LABS: ALT (SGPT) 45 U/L (8-55); AST (SGOT) 62 U/L (5-34); Albumin 2.3 g/dL (3.5-5.0); Alkaline Phosphatase 115 U/L (40-110); Anion Gap 12 mmol/L (10-20); BUN (Urea Nitrogen) 12 mg/dL (7.0-18.7); Bilirubin, Total 1.2 mg/dL (0.2-1.2); Calc. Creatinine Clearance 173 mL/min (70-130); Calcium 7.4 mg/dL (7.8-10.44); Carbon Dioxide 20 mmol/L (22-29); Chloride 108 mmol/L (98-107); Estimated GFR 120; Globulin 2.8 g/dL (2.4-3.5); Glucose 95 mg/dL (70-105); Magnesium 2.1 mg/dL (1.6-2.6); Potassium 3.5 mmol/L (3.5-5.1); Protein, Total 5.1 g/dL (6.0-8.3); Sodium 136 mmol/L (136-145)
[2022-05-02] MEDS: Potassium Chloride 20 MEQ in Premix Bag 1 BAG IVPB SCH ×2 (09:30→11:43)
[2022-05-02] MEDS: Pantoprazole 40 MG VIAL IVP SCH ×2 (09:31→20:41)
[2022-05-02] MEDS ORDERED: Phytonadione 5 MG TAB PO SCH (12:45)
[2022-05-02] MEDS: Furosemide 20 MG/2 ML VIAL SLOW IVP SCH (14:02)
[2022-05-02] MEDS: Spironolactone 25 MG TAB PO SCH (16:37)
[2022-05-02] MEDS: cefTRIAXone\\ROCEPHIN 2 GM in Sodium Chloride 0.9% 100 ML IVPB SCH (16:40)
[2022-05-03] MEDS: Furosemide 20 MG/2 ML VIAL SLOW IVP SCH ×2 (06:10→14:50)
[2022-05-03 06:23] LABS: INR-International Normal Ratio 1.4; PTT 39.3 sec (22.9-36.1); Prothrombin Time 16.9 sec (12.0-14.7)
[2022-05-03 06:32] LABS: ALT (SGPT) 35 U/L (8-55); AST (SGOT) 46 U/L (5-34); Albumin 2.1 g/dL (3.5-5.0); Alkaline Phosphatase 85 U/L (40-110); Anion Gap 10 mmol/L (10-20); BUN (Urea Nitrogen) 11 mg/dL (7.0-18.7); Bilirubin, Total 1.4 mg/dL (0.2-1.2); Calc. Creatinine Clearance 181 mL/min (70-130); Calcium 7.3 mg/dL (7.8-10.44); Carbon Dioxide 24 mmol/L (22-29); Chloride 105 mmol/L (98-107); Estimated GFR 121; Globulin 2.3 g/dL (2.4-3.5); Glucose 91 mg/dL (70-105); Potassium 3.7 mmol/L (3.5-5.1); Protein, Total 4.4 g/dL (6.0-8.3); Sodium 135 mmol/L (136-145)
[2022-05-03 07:12] LABS: #Basophils 0.1 thou/uL (0.0-0.2); #Eosinphils 0.3 thou/uL (0.0-0.7); #Lymphocytes 2.9 thou/uL (1.20-3.40); #Monocytes 0.7 thou/uL (0.11-0.59); #Neutrophils 4.6 thou/uL (1.40-6.50); %Basophils 0.8 % (0.0-1.0); %Eosinophils 3.7 % (0.0-10.0); %Lymphocytes 33.7 % (21.0-51.0); %Monocytes 8.2 % (0.0-10.0); %Neutrophils 53.5 % (42.0-75.0); Hemoglobin 6.5 g/dL (12.0-16.0); Mean Corpuscular HGB CONC 32.3 g/dL (32.0-36.0); Mean Corpuscular Hemoglobin 31.5 pg (27.0-31.0); Mean Corpuscular Volume 97.4 fL (78.0-98.0); Mean Platelet Volume 7.1 fL (7.4-10.4); Platelet Count 153 thou/uL (130-400); RBC Distribution Width 17.6 % (11.5-14.5); Red Blood Cell (RBC) Count 2.07 mill/uL (4.20-5.40); White Blood Cell (WBC) Count 8.5 thou/uL (4.8-10.8)
[2022-05-03] MEDS: Spironolactone 25 MG TAB PO SCH ×2 (07:45→17:00)
[2022-05-03] MEDS: Pantoprazole 40 MG VIAL IVP SCH ×2 (07:45→20:03)
[2022-05-03] MEDS ORDERED: Magnesium 2 GM/50 ML(in water) 2 GM in Premix Bag 1 BAG IVPB SCH (08:00)
[2022-05-03] MEDS: Sodium Chloride 0.9% 1,000 ML IV SCH ×2 (08:10→17:07)
[2022-05-03 14:59] LABS: Hemoglobin 5.6 g/dL (12.0-16.0)
[2022-05-03] MEDS: cefTRIAXone\\ROCEPHIN 2 GM in Sodium Chloride 0.9% 100 ML IVPB SCH (17:00)
[2022-05-04] MEDS: Sodium Chloride 0.9% 1,000 ML IV SCH (05:08)
[2022-05-04] MEDS: Furosemide 20 MG/2 ML VIAL SLOW IVP SCH ×2 (06:11→14:59)
[2022-05-04 07:29] LABS: #Basophils 0.1 thou/uL (0.0-0.2); #Eosinphils 0.3 thou/uL (0.0-0.7); #Lymphocytes 2.4 thou/uL (1.20-3.40); #Monocytes 0.7 thou/uL (0.11-0.59); #Neutrophils 4.2 thou/uL (1.40-6.50); %Basophils 1.5 % (0.0-1.0); %Lymphocytes 31.5 % (21.0-51.0); %Monocytes 8.5 % (0.0-10.0); %Neutrophils 54.5 % (42.0-75.0); Hemoglobin 9.1 g/dL (12.0-16.0); Mean Corpuscular Hemoglobin 32.2 pg (27.0-31.0); Mean Corpuscular Volume 97.4 fL (78.0-98.0); Mean Platelet Volume 7.2 fL (7.4-10.4); Platelet Count 139 thou/uL (130-400); RBC Distribution Width 15.8 % (11.5-14.5); Red Blood Cell (RBC) Count 2.84 mill/uL (4.20-5.40); White Blood Cell (WBC) Count 7.6 thou/uL (4.8-10.8)
[2022-05-04 07:35] LABS: INR-International Normal Ratio 1.2; Prothrombin Time 15.1 sec (12.0-14.7)
[2022-05-04 07:37] LABS: PTT 38.5 sec (22.9-36.1)
[2022-05-04 07:58] LABS: ALT (SGPT) 36 U/L (8-55); AST (SGOT) 49 U/L (5-34); Albumin 2.4 g/dL (3.5-5.0); Alkaline Phosphatase 102 U/L (40-110); Anion Gap 13 mmol/L (10-20); BUN (Urea Nitrogen) 8 mg/dL (7.0-18.7); Bilirubin, Total 3.2 mg/dL (0.2-1.2); Calc. Creatinine Clearance 188 mL/min (70-130); Calcium 7.6 mg/dL (7.8-10.44); Carbon Dioxide 24 mmol/L (22-29); Chloride 101 mmol/L (98-107); Estimated GFR 121; Globulin 2.7 g/dL (2.4-3.5); Glucose 79 mg/dL (70-105); Magnesium 1.8 mg/dL (1.6-2.6); Potassium 3.5 mmol/L (3.5-5.1); Protein, Total 5.1 g/dL (6.0-8.3); Sodium 134 mmol/L (136-145)
[2022-05-04] MEDS ORDERED: Magnesium 2 GM/50 ML(in water) 2 GM in Premix Bag 1 BAG IVPB SCH (09:00)
[2022-05-04] MEDS ORDERED: Potassium Chloride 20 MEQ TAB PO SCH (09:00)
[2022-05-04] MEDS: Spironolactone 25 MG TAB PO SCH ×2 (09:10→17:07)
[2022-05-04] MEDS: Pantoprazole 40 MG VIAL IVP SCH ×2 (09:10→20:04)
[2022-05-04] MEDS ORDERED: Preparation H Suppository PR PRN (16:49)
[2022-05-04] MEDS: Hydrocortisone/Pramoxine (Proctofoam HC) 10 GM BOX TOP SCH (20:08)
[2022-05-05 04:42] LABS: #Basophils 0.1 thou/uL (0.0-0.2); #Eosinphils 0.2 thou/uL (0.0-0.7); #Monocytes 0.7 thou/uL (0.11-0.59); #Neutrophils 3.9 thou/uL (1.40-6.50); %Eosinophils 3.5 % (0.0-10.0); %Lymphocytes 29.5 % (21.0-51.0); %Monocytes 9.5 % (0.0-10.0); %Neutrophils 56.5 % (42.0-75.0); Hemoglobin 7.5 g/dL (12.0-16.0); Mean Corpuscular HGB CONC 32.6 g/dL (32.0-36.0); Mean Corpuscular Hemoglobin 31.6 pg (27.0-31.0); Mean Corpuscular Volume 96.9 fL (78.0-98.0); Mean Platelet Volume 7.4 fL (7.4-10.4); Platelet Count 127 thou/uL (130-400); RBC Distribution Width 16.1 % (11.5-14.5); Red Blood Cell (RBC) Count 2.38 mill/uL (4.20-5.40); White Blood Cell (WBC) Count 6.9 thou/uL (4.8-10.8)
[2022-05-05 04:45] LABS: INR-International Normal Ratio 1.2; Prothrombin Time 15.6 sec (12.0-14.7)
[2022-05-05 04:46] LABS: PTT 37.8 sec (22.9-36.1)
[2022-05-05 04:57] LABS: ALT (SGPT) 29 U/L (8-55); AST (SGOT) 44 U/L (5-34); Albumin 2.2 g/dL (3.5-5.0); Alkaline Phosphatase 106 U/L (40-110); Anion Gap 9 mmol/L (10-20); BUN (Urea Nitrogen) 9 mg/dL (7.0-18.7); Bilirubin, Total 1.1 mg/dL (0.2-1.2); Calc. Creatinine Clearance 191 mL/min (70-130); Calcium 7.3 mg/dL (7.8-10.44); Carbon Dioxide 25 mmol/L (22-29); Chloride 104 mmol/L (98-107); Estimated GFR 122; Globulin 2.5 g/dL (2.4-3.5); Glucose 95 mg/dL (70-105); Magnesium 1.9 mg/dL (1.6-2.6); Potassium 3.6 mmol/L (3.5-5.1); Protein, Total 4.7 g/dL (6.0-8.3); Sodium 134 mmol/L (136-145)
[2022-05-05] MEDS: Spironolactone 25 MG TAB PO SCH (07:29)
[2022-05-05] MEDS ORDERED: Furosemide 40 MG TAB PO SCH (07:30)
[2022-05-05] MEDS ORDERED: Magnesium 2 GM/50 ML(in water) 2 GM in Premix Bag 1 BAG IVPB SCH (08:00)
[2022-05-05] MEDS: Hydrocortisone/Pramoxine (Proctofoam HC) 10 GM BOX TOP SCH (08:34)
[2022-05-05] MEDS: Pantoprazole 40 MG VIAL IVP SCH (08:34)
[2022-05-05 11:35] LABS: Band 2 % (5-11); Eosinophils 4 % (0-10); Lymphocytes 31 % (21-51)
[2022-05-05 11:36] LABS: Monocytes 7 % (0-10); Neutrophil 56 % (42-75); Polychromasia SLIGHT = 2-3 cells (100X) (0-2/hpf)
[2022-05-05 12:13] VITALS: BP 115/67; TEMP 98.6
== END 2022-05-05 13:53 | disposition home or self-care (01) | DRG 393 ==
LOC: SUATTDRO 08:20 → ERS 08:20 → CCU 11:54 → T4-B 05-01 19:35 → 2SW 05-03 16:38
PROVIDERS: ADMIT Family Medicine; ATTEND Family Medicine
PROC: 30233K1 Transfusion of Nonautologous Frozen Plasma into Peripheral Vein, Percutaneous Approach (ICD-10-PCS; 2022-04-30)
PROC: 30233N1 Transfusion of Nonautologous Red Blood Cells into Peripheral Vein, Percutaneous Approach (ICD-10-PCS; 2022-04-30)
PROC: 3E033XZ Introduction of Vasopressor into Peripheral Vein, Percutaneous Approach (ICD-10-PCS; 2022-04-30)
PROC: 0DJD8ZZ Inspection of Lower Intestinal Tract, Via Natural or Artificial Opening Endoscopic (ICD-10-PCS; principal; 2022-05-01)
DX: K64.4 Residual hemorrhoidal skin tags (principal); G92.8 Other toxic encephalopathy; R57.8 Other shock; D62 Acute posthemorrhagic anemia; K76.6 Portal hypertension; Z20.822 Contact with and (suspected) exposure to COVID-19; K64.8 Other hemorrhoids; K57.30 Diverticulosis of large intestine without perforation or abscess without bleeding; F14.10 Cocaine abuse, uncomplicated; H91.90 Unspecified hearing loss, unspecified ear; F10.10 Alcohol abuse, uncomplicated; K70.11 Alcoholic hepatitis with ascites; R91.8 Other nonspecific abnormal finding of lung field; F17.210 Nicotine dependence, cigarettes, uncomplicated; F41.9 Anxiety disorder, unspecified; F12.10 Cannabis abuse, uncomplicated; K70.31 Alcoholic cirrhosis of liver with ascites; K31.89 Other diseases of stomach and duodenum; T40.711A Poisoning by cannabis, accidental (unintentional), initial encounter; T40.5X1A Poisoning by cocaine, accidental (unintentional), initial encounter; E87.6 Hypokalemia; D69.6 Thrombocytopenia, unspecified; Z71.6 Tobacco abuse counseling; Z28.21 Immunization not carried out because of patient refusal; Z86.010 Personal history of colon polyps; Z88.0 Allergy status to penicillin; Z90.49 Acquired absence of other specified parts of digestive tract; Z79.52 Long term (current) use of systemic steroids; Z79.899 Other long term (current) drug therapy; Z86.16 Personal history of COVID-19; Z87.01 Personal history of pneumonia (recurrent); Z86.61 Personal history of infections of the central nervous system
CPT/HCPCS: 36415; 36430; 36556; 51702; 70450; 71045; 74174; 76705; 80053; 80061; 80306; 80307; 81003; 81025; 82140; 82533; 82728; 83036; 83540; 83550; 83605; 83735; 84443; 85025; 85060; 85610; 85730; 86850; 86900; 86901; 87040; 93005; 94760; 96361; 96365; 96366; 96367; 96375; 96376; C9113; J0692; J0696; J1940; J2250; J2354; J2370; J2405; J2704; J3370; J3475; J3480; J3490; J7030; J7050; P9016; P9059; Q9967